=== PATIENT | female | born 1935 | race Caucasian/White ===

== ENCOUNTER → 2016-08-31 | Outpatient (CLI) | payer MEDICARE, BC ==
[~2016-08-31] MED LIST: ACET1TAB25 PO; ASPI-558 PO; CALC600T86 PO; CARB1TAB20 PO; CLIN300C86 PO; Docusate Sodium PO; ENOX40DI SQ; HUM10VIA3 SQ; INSU100V8 SQ; MAGN400T6 PO; METF1000 PO; METF500T PO; MULT1TAB77 PO; POLY17PO6 PO; PRIM50TA27 PO; PROP40TA PO; SIMV20TA89 PO
== END ==
LOC: NWCC 10:07
PROVIDERS: ATTEND Surgery
DX: L84 Corns and callosities (principal); B35.1 Tinea unguium; E11.8 Type 2 diabetes mellitus with unspecified complications